=== PATIENT | female | born 1970 | race Two or more races ===

== ENCOUNTER → 2017-04-23 | Outpatient (CLI) | payer BC ==
[2015-05-15 21:56] VITALS: BP 119/62
--- NOTE | 2017-04-23 12:50 | RAD ---
MRI of the brain without contrast 04/23/2017 Clinical History: Headaches. Technique: Unenhanced T1-weighted sagittal and axial, T2-weighted axial and coronal and FLAIR, gradient echo and diffusion-weighted axial images of the brain were obtained. Findings: No previous imaging studies are available for comparison. The ventricles and sulci are within normal limits in size and configuration. Patchy and several small scattered areas of increased signal intensity are seen within the periventricular and subcortical white matter of both cerebral hemispheres along with the karin on the FLAIR and T2-weighted images. These measure 2 mm to 5 mm in size. Their MRI appearance is nonspecific and could represent areas of small vessel ischemic disease or could be seen in the setting of a demyelinating disorder such as multiple sclerosis. They can be seen in patients with a history of migraine headaches. No acute parenchymal abnormality is seen. No extra-axial fluid collection is noted. There is no MRI evidence of acute ischemia/infarction. Mild mucosal thickening is seen scattered throughout the paranasal sinuses. Normal flow voids are seen within the major vascular structures surrounding the brain parenchyma. Impression: 1. Patchy and several small scattered areas of abnormally increased signal intensity are seen within the white matter of both cerebral hemispheres along with the karin on the FLAIR and T2-weighted images. Their MRI appearance is nonspecific as outlined above. 2. No acute parenchymal abnormality is seen. Electronically signed by: Juan Lozano MD (04/23/2017 12:46 PM) [id number]
--- NOTE | 2017-04-23 13:48 | RAD ---
Skull radiograph 04/23/2017 at 0906 hours Indication: Pre-MRI screening Technique: 2 views of the skull are provided. Comparison: None findings: No radiopaque foreign densities identified. Dental amalgam is present. Calvaria is intact. Paranasal sinuses are well aerated. Upper cervical spine is normal. Impression: No radiopaque density.
== END | disposition home or self-care (01) ==
LOC: MRI 08:40
PROVIDERS: ATTEND Physician Assistant Surgical
DX: Z01.818 Encounter for other preprocedural examination (principal); E22.1 Hyperprolactinemia
CPT/HCPCS: 70250; 70551

== ENCOUNTER → 2017-05-28 | Outpatient (CLI) | payer BC ==
[2015-05-15 21:56] VITALS: BP 119/62
--- NOTE | 2017-05-28 15:33 | RAD ---
Renal ultrasound, 05/28/2017: History: Left flank pain The right kidney measures 12.2 cm in length. There is no evidence of hydronephrosis or a renal mass. The left kidney is abnormal. There are echogenic areas centrally compatible with calcifications. There are cystic components probably due to hydronephrosis. There also appears to be some echogenic debris within the fluid. The urinary bladder contains echogenic debris layering posteriorly. IMPRESSION: 1. Abnormal left kidney containing calculi and probable hydronephrosis with echogenic debris in the collecting system. The findings suggest a combination of obstruction and infection. 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 The possibility of underlying neoplasm cannot be excluded. Multiphase CT scanning is suggested for further evaluation. 2. Echogenic debris within the urinary bladder. 3. Normal right kidney.
== END | disposition home or self-care (01) ==
LOC: US 14:18
PROVIDERS: ATTEND Internal Medicine Nephrology
DX: N12 Tubulo-interstitial nephritis, not specified as acute or chronic (principal); E11.9 Type 2 diabetes mellitus without complications; R80.9 Proteinuria, unspecified
CPT/HCPCS: 76770

== ENCOUNTER 2017-06-08 16:26 | Emergency (ER) | payer BC ==
[~2017-06-08] VITALS: Ht 152.4 cm; Wt 46.3 kg
[2017-06-08 17:22] LABS: BILIRUBIN,URINE NEGATIVE (NEG); GLUCOSE,URINE NEGATIVE (NEG); NITRITE,URINE POSITIVE (NEG); PROTEIN,URINE 30 mg/dL (NEG-TRACE); UROBILINOGEN,URINE 0.2 mg/dL (0.2 mg/dL)
[2017-06-08] MEDS ORDERED: fentaNYL PF VIAL 100 MCG/2 ML VIAL IV ONE (17:30)
[2017-06-08 17:32] LABS: BACTERIA,URINE MANY /HPF (0-FEW); WBC,URINE TNTC /HPF (0-4)
[2017-06-08 17:46] LABS: BASO % 1 % (0-3); EOS % 1 % (0-3); HEMATOCRIT 35.5 % (36.0-47.0); HEMOGLOBIN 11.7 g/dL (12.0-15.5); LYMPH # 1.6 x10^3/uL (1.0-4.8); LYMPH % 28 % (24-48); MEAN CORPUSCULAR HEMOGLOBIN 27 pg (25-35); MEAN CORPUSCULAR HGB CONC 33 g/dL (31-37); MEAN CORPUSCULAR VOLUME 82 fL (79-100); MONO % 12 % (0-9); NEUT % 58 % (31-73); PLATELET COUNT 256 x10^3/uL (140-400); RED BLOOD COUNT 4.32 x10^6/uL (3.50-5.40); RED CELL DISTRIBUTION WIDTH 14.9 % (11.5-14.5); WHITE BLOOD COUNT 5.8 x10^3/uL (4.0-11.0)
[2017-06-08 17:58] LABS: CALCIUM 9.3 mg/dL (8.5-10.1); CREATININE 0.7 mg/dL (0.6-1.0); GFR 90.1; POTASSIUM 3.9 mmol/L (3.5-5.1)
[2017-06-08 17:59] LABS: NEG OBC SER NEG; POS OBC SER POS
[2017-06-08 18:05] LABS: ALBUMIN/GLOBULIN RATIO 0.6 (1.0-1.7); TOTAL BILIRUBIN 0.2 mg/dL (0.2-1.0); TOTAL PROTEIN 7.9 g/dL (6.4-8.2)
--- NOTE | 2017-06-08 18:52 | PHYS DOC ---
Past Medical History Past Medical History: Diabetes-Type II, Hepatitis Past Surgical History: No Surgical History Alcohol Use: Occasionally Drug Use: None Adult General Chief Complaint Chief Complaint: FLANK PAIN HPI HPI Patient is a 46 year old female with history of diabetes, kidney stones with no left-sided kidney stones diagnosed by retroperitoneal ultrasound 11 days ago with hydronephrosis and pyelonephritis who presents with increased flank pain. Patient has been treated as an outpatient and sees a urologist at [facility]. Associated symptoms include nausea. Patient eyes fever chills and sweats. No hematuria urinary frequency urgency. No other acute symptoms or complaints. Review of Systems Review of Systems Review symptoms as per history of present illness. All other review symptoms are negative. Current Medications Current Medications Current Medications Medications (Trade) Dose Ordered Sig/Liam Start Time Stop Time Status Last Admin Dose Admin Fentanyl Citrate (Fentanyl 2ml Vial) 50 mcg 1X ONCE 06/08/17 17:30 06/08/17 17:31 DC 06/08/17 17:59 50 MCG Levofloxacin/ Dextrose 150 ml @ 100 mls/hr 1X ONCE 06/08/17 19:15 06/08/17 20:44 DC 06/08/17 19:24 100 MLS/HR Piperacillin Sod/ Tazobactam Sod 3.375 gm/Sodium Chloride 50 ml @ 100 mls/hr 1X ONCE 06/08/17 19:45 06/08/17 20:14 DC 06/08/17 20:57 100 MLS/HR Sodium Chloride 1,000 ml @ 1,000 mls/hr 1X ONCE 06/08/17 19:30 06/08/17 20:29 DC 06/08/17 19:24 1,000 MLS/HR Allergies Allergies Allergies Coded Allergies Type Severity Reaction Last Updated Verified No Known Drug Allergies 05/15/15 No Physical Exam Physical Exam Constitutional: Well developed, well nourished, no acute distress, non-toxic appearance. [] HENT: Normocephalic, atraumatic, bilateral external ears normal, oropharynx moist, no oral exudates, nose normal. [] Eyes: PERRLA, EOMI, conjunctiva normal, no discharge. [] Neck: Normal range of motion, no tenderness, supple, no stridor. [] Cardiovascular:Heart rate regular rhythm, no murmur [] Lungs & Thorax: Bilateral breath sounds clear to auscultation [] Abdomen: Bowel sounds normal, soft, no tenderness, no masses, no pulsatile masses. [] Skin: Warm, dry, no erythema, no rash. [] Back: No tenderness, left CVA tenderness. [] Extremities: No tenderness, no cyanosis, no clubbing, ROM intact, no edema. [] Neurologic: Alert and oriented X 3, normal motor function, normal sensory function, no focal deficits noted. [] Psychologic: Affect normal, judgement normal, mood normal. [] Current Patient Data Vital Signs Vital Signs Date Time Temp Pulse Resp B/P (MAP) Pulse Ox O2 Delivery O2 Flow Rate FiO2 06/08/17 21:00 70 126/74 (91) 98 Room Air 06/08/17 19:12 16 06/08/17 17:05 98.8 98.8 Lab Values Laboratory Tests Test 06/08/17 16:14 06/08/17 17:05 06/08/17 17:40 POC Urine HCG, Qualitative Hcg negative (Negative) Urine Collection Type Unknown Urine Color Yellow Urine Clarity Turbid Urine pH 6.0 Urine Specific Worden 1.015 Urine Protein 30 mg/dL (NEG-TRACE) Urine Glucose (UA) Negative mg/dL (NEG) Urine Ketones (Stick) Negative mg/dL (NEG) Urine Blood Large (NEG) Urine Nitrite Positive (NEG) Urine Bilirubin Negative (NEG) Urine Urobilinogen Dipstick 0.2 mg/dL (0.2 mg/dL) Urine Leukocyte Esterase Large (NEG) Urine RBC /HPF (0-2) Urine WBC Tntc /HPF (0-4) Urine Bacteria Many /HPF (0-FEW) White Blood Count 5.8 x10^3/uL (4.0-11.0) Red Blood Count 4.32 x10^6/uL (3.50-5.40) Hemoglobin 11.7 g/dL (12.0-15.5) L Hematocrit 35.5 % (36.0-47.0) L Mean Corpuscular Volume 82 fL (79-100) Mean Corpuscular Hemoglobin 27 pg (25-35) Mean Corpuscular Hemoglobin Concent 33 g/dL (31-37) Red Cell Distribution Width 14.9 % (11.5-14.5) H Platelet Count 256 x10^3/uL (140-400) Neutrophils (%) (Auto) 58 % (31-73) Lymphocytes (%) (Auto) 28 % (24-48) Monocytes (%) (Auto) 12 % (0-9) H Eosinophils (%) (Auto) 1 % (0-3) Basophils (%) (Auto) 1 % (0-3) Neutrophils # (Auto) 3.4 x10^3uL (1.8-7.7) Lymphocytes # (Auto) 1.6 x10^3/uL (1.0-4.8) Monocytes # (Auto) 0.7 x10^3/uL (0.0-1.1) Eosinophils # (Auto) 0.1 x10^3/uL (0.0-0.7) Basophils # (Auto) 0.0 x10^3/uL (0.0-0.2) Sodium Level 139 mmol/L (136-145) Potassium Level 3.9 mmol/L (3.5-5.1) Chloride Level 102 mmol/L (98-107) Carbon Dioxide Level 30 mmol/L (21-32) Anion Gap 7 (6-14) Blood Urea Nitrogen 10 mg/dL (7-20) Creatinine 0.7 mg/dL (0.6-1.0) Estimated GFR (Cockcroft-Gault) 90.1 BUN/Creatinine Ratio 14 (6-20) Glucose Level 102 mg/dL (70-99) H Calcium Level 9.3 mg/dL (8.5-10.1) Total Bilirubin 0.2 mg/dL (0.2-1.0) Aspartate Amino Transferase (AST) 23 U/L (15-37) Alanine Aminotransferase (ALT) 23 U/L (14-59) Alkaline Phosphatase 123 U/L (46-116) H Total Protein 7.9 g/dL (6.4-8.2) Albumin 3.0 g/dL (3.4-5.0) L Albumin/Globulin Ratio 0.6 (1.0-1.7) L Serum Test, Qualitative Negative (NEG) Laboratory Tests 06/08/17 17:40 Laboratory Tests 06/08/17 17:40 EKG EKG [] Radiology/Procedures Radiology/Procedures CT abdomen pelvis: Varinder Jesup calculus in the left renal pelvis with a dilated left kidney with perinephric edema and additional calcifications. 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 No urology coverage available at this facility. Patient accepted by at [facility].] Course & Med Decision Making Course & Med Decision Making Pertinent Labs and Imaging studies reviewed. 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 IV fluids and empiric antibiotics given. Patient has recently been evaluated by urologist at [facility]. There is no urology coverage at this facility. Will facilitate transfer to [facility]. ] Dragon Disclaimer Dragon Disclaimer This electronic medical record was generated, in whole or in part, using a voice recognition dictation system. Departure Departure Impression: Primary Impression: Pyelonephritis Additional Impression: Renal calculi Disposition: 02 TRANSFER [facility] Condition: LEFT WITHOUT BEING SEEN Referrals: JOSE WALLIS (PCP) Problem Qualifiers GIANLUCA CRENSHAW DO Jun 08, 2017 18:51
--- NOTE | 2017-06-08 19:02 | RAD ---
Abdominal and Pelvis CT, Without Contrast: History: Left flank pain. Comparison: None. Procedure: Axial images are obtained of the abdomen and pelvis, without IV or oral contrast. CT Abdomen without Contrast: Findings: Evaluation of solid organs is limited without contrast. Evaluation of stomach and bowel is limited without oral contrast. There is a 3 cm x 4 cm staghorn calculus in the left renal pelvis with moderate hydronephrosis and mild perinephric edema. The right kidney appears normal. There is multiple moderately enlarged retroperitoneal lymph nodes to the left of the aorta. Liver: Normal. Spleen: Normal. Pancreas: The pancreas is atrophic. This calcifications within the head and neck the pancreas and the pancreatic duct is moderately dilated to 7 mm. Adrenal Glands: Normal. There is no free air or free fluid. There is no lymphadenopathy. Impression: Please see CT Pelvis without Contrast. End Impression. CT Pelvis without Contrast: Findings: The urinary bladder appears normal. There is no free fluid. There is no lymphadenopathy. There is no pericolonic inflammation identified. Impression: 1. 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 2. Mild to moderate retroperitoneal lymphadenopathy could be reactive. Neoplasm is not excluded. 3. Atrophic pancreas with dilated duct. This is likely chronic. End impression PQRS Compliance Statement: One or more of the following individualized dose reduction techniques were utilized for this examination: 1. Automated exposure control 2. Adjustment of the mA and/or kV according to patient size 3. Use of iterative reconstruction technique Electronically signed by: Cristian Fuller III, MD (06/08/2017 6:58 PM) [id number]
[2017-06-08] MEDS ORDERED: IV NORMAL SALINE 1000ML BAG 1,000 ML IV ONE (19:30)
[2017-06-08] MEDS ORDERED: PIPERACILLIN/TAZOBACTAM 3.375 GM in IV NORMAL SALINE 50ML 50 ML IV ONE (19:45)
[2017-06-08 21:00] VITALS: BP 126/74
== END 2017-06-08 22:00 | disposition home or self-care (01) ==
LOC: ER 16:26
DX: N12 Tubulo-interstitial nephritis, not specified as acute or chronic (principal); N20.0 Calculus of kidney; E11.9 Type 2 diabetes mellitus without complications; Z86.19 Personal history of other infectious and parasitic diseases
CPT/HCPCS: 36415; 74176; 80053; 81001; 81025; 84703; 85025; 87040; 87086; 96365; 96366; 96368; 96375; 99285; J1956; J2543; J3010; J7030